=== PATIENT | male | born 1980 | race Caucasian/White ===

== ENCOUNTER 2021-08-12 10:41 | Emergency (ER) | payer SELFPAY ==
[~2021-08-12] VITALS: Ht 175.3 cm; Wt 127.0 kg
[2021-08-12 12:15] VITALS: BP 126/81
== END 2021-08-12 12:15 | disposition home or self-care (01) | DRG 948 ==
LOC: ED 10:41
DX: R68.83 Chills (without fever) (principal); M79.10 Myalgia, unspecified site; G20 Parkinson's disease; F17.200 Nicotine dependence, unspecified, uncomplicated; Z20.822 Contact with and (suspected) exposure to COVID-19

== ENCOUNTER 2023-01-13 18:36 | Emergency (ER) | payer OTHER ==
[~2023-01-13] VITALS: Ht 175.3 cm; Wt 131.0 kg
[2023-01-13] VITALS (9 sets, daily range): BP systolic 57–128; BP diastolic 39–92
[2023-01-13 18:59] LABS: BASO% 0.3 % (0-3); EOS% 0.8 % (0-8); HEMATOCRIT 43.9 % (39.0-50.0); HEMOGLOBIN 14.4 g/dl (14.0-18.0); IMMATURE GRANULOCYTES 0.1 % (0.0-5.0); LYMPH% 40.7 % (15-41); MEAN CELL VOLUME 94.6 fL CALC (80.0-100.0); MEAN CORPUSCULAR HGB CONC 32.8 g/dL CAL (32.0-36.0); MONO% 6.8 % (2-13); NEUT# 4.02 thou/uL (1.82-7.42); NEUT% 51.3 % (42-76); RED BLOOD COUNT 4.64 mill/uL (4.70-6.10); RED CELL DISTRI WIDTH 11.8 % (11.5-15.5)
[2023-01-13 19:19] LABS: ALBUMIN 4.4 g/dL (3.2-5.0); ALKALINE PHOSPHATASE 34 u/l (38-126); ANION GAP 12 (6-22 (CALC)); BILIRUBIN, TOTAL 0.3 mg/dL (0.2-1.3); BUN 14 mg/dL (9-20); BUN/CREATININE RATIO 12 (12-20 (CALC)); CARBON DIOXIDE 26 mmol/l (22-30); CHLORIDE 106 mmol/l (95-108); CREATININE 1.1 mg/dL (0.7-1.3); GFR FOR AFR.AMER. > 60 ML/MIN (>=60 (CALC)); GFR OTHER RACES > 60 ML/MIN (>=60 (CALC)); LIPASE 147 u/l (23-300); POTASSIUM 3.9 mmol/l (3.5-5.1); SGOT/AST 27 u/l (17-59); SODIUM 139 mmol/l (137-146); TOTAL PROTEIN 7.4 g/dL (6.3-8.2)
[2023-01-13] MEDS ORDERED: MOTRIN800 MG PO (22:42)
[2023-01-13] MEDS ORDERED: TIZANIDINE2 MG PO (22:42)
== END 2023-01-13 23:39 | disposition home or self-care (01) | DRG 605 ==
LOC: ED 18:36
PROVIDERS: Family Medicine
DX: S20.212A Contusion of left front wall of thorax, initial encounter (principal); M54.2 Cervicalgia; G20 Parkinson's disease; V49.40XA Driver injured in collision with unspecified motor vehicles in traffic accident, initial encounter
CPT/HCPCS: Q9967

== ENCOUNTER 2023-04-21 20:31 | Emergency (ER) | payer OTHER ==
[~2023-04-21] VITALS: Ht 175.3 cm; Wt 127.0 kg
[~2023-04-21 20:31] MED LIST: MOTRIN800 MG PO; TIZANIDINE2 MG PO
[2023-04-21 20:38] VITALS: BP 149/90
[2023-04-21] MEDS ORDERED: PROPRANOLOL HYD40 MG PO (20:45)
[2023-04-21 20:47] VITALS: BP 135/91
[2023-04-21] MEDS ORDERED: NAPROXEN500 MG PO (20:54)
[2023-04-21] MEDS ORDERED: CYCLOBENZAPRINE10 MG PO (20:54)
[2023-04-21 21:01] VITALS: BP 133/97
[2023-04-21 21:18] VITALS: BP 133/97
== END 2023-04-21 21:18 | disposition home or self-care (01) | DRG 552 ==
LOC: ED 20:31
DX: M54.50 Low back pain, unspecified (principal)

== ENCOUNTER 2023-08-18 22:11 | Emergency (ER) | payer SELFPAY ==
[~2023-08-18] VITALS: Ht 175.3 cm; Wt 127.0 kg
[~2023-08-18 22:11] MED LIST changes: +CYCLOBENZAPRINE10 MG PO; +NAPROXEN500 MG PO; +PROPRANOLOL HYD40 MG PO
[2023-08-18 22:30] VITALS: BP 127/92
[2023-08-18] MEDS ORDERED: ROPINIROLE0.5 MG PO (22:43)
[2023-08-18 22:46] VITALS: BP 114/68
[2023-08-18 23:16] VITALS: BP 104/67
[2023-08-19] MEDS ORDERED: METHOCARBAMOL500 MG PO (02:35)
[2023-08-19 02:45] VITALS: BP 104/67
== END 2023-08-19 02:45 | disposition home or self-care (01) | DRG 552 ==
LOC: ED 22:11
DX: M54.9 Dorsalgia, unspecified (principal); G20.A1 Parkinson's disease without dyskinesia, without mention of fluctuations

== ENCOUNTER 2024-02-23 14:26 | Observation (INO) | payer OTHER ==
[2024-02-23] VITALS (19 sets, daily range): BP systolic 72–230; BP diastolic 30–129
[~2024-02-23] VITALS: Ht 175.3 cm; Wt 121.0 kg
[~2024-02-23 14:26] MED LIST changes: +ESCITALOPRAM OXA5 MG PO; +GABAPENTIN800 MG PO; +HALCION0.25 MG PO; +MELOXICAM15 MG PO; +METHOCARBAMOL500 MG PO; +ROPINIROLE0.5 MG PO; +TRIHEXYPHEN2 MG PO; +ZOFRAN4 MG/TAB PO
[2024-02-23] MEDS ORDERED: ASPIRIN 81 MG/TAB PO ONE (14:35)
[2024-02-23] MEDS ORDERED: diazePAM 10 MG/2 ML VIAL IV ONE (14:45)
[2024-02-23] MEDS ORDERED: NITROGLYCERIN 0.4 MG/TAB SL ONE (15:10)
[2024-02-23 15:11] LABS: BASO% 0.3 % (0-3); EOS% 0.8 % (0-8); HEMATOCRIT 41.9 % (39.0-50.0); MEAN CELL VOLUME 96.3 fL CALC (80.0-100.0); MEAN CORPUSCULAR HGB 32.2 pG CALC (26.0-32.0); MEAN CORPUSCULAR HGB CONC 33.4 g/dL CAL (32.0-36.0); MONO% 6.6 % (2-13); NEUT# 3.98 thou/uL (1.82-7.42); NEUT% 61.3 % (42-76); RED BLOOD COUNT 4.35 mill/uL (4.70-6.10); RED CELL DISTRI WIDTH 12.1 % (11.5-15.5)
[2024-02-23 15:27] LABS: ALBUMIN 4.2 g/dL (3.2-5.0); ALKALINE PHOSPHATASE 25 u/l (38-126); ANION GAP 7 (6-22 (CALC)); BILIRUBIN, TOTAL 0.5 mg/dL (0.2-1.3); BUN 12 mg/dL (9-20); BUN/CREATININE RATIO 12 (12-20 (CALC)); CARBON DIOXIDE 27 mmol/l (22-30); CHLORIDE 106 mmol/l (95-108); ESTIMATED GFR 97 ML/MIN (>=90 (CALC)); POTASSIUM 4.2 mmol/l (3.5-5.1); SGOT/AST 25 u/l (17-59); SODIUM 136 mmol/l (137-146); TOTAL PROTEIN 7.3 g/dL (6.3-8.2)
[2024-02-23] MEDS ORDERED: SODIUM CHLORIDE 0.9% 1,000 ML IV ONE (15:35)
[2024-02-23] MEDS ORDERED: MORPHINE SULFATE 4 MG/ML VIAL IV ONE ×2 (18:15)
[2024-02-23] MEDS ORDERED: ACETAMINOPHEN 325 MG/TAB PO PRN (19:55)
[2024-02-23] MEDS ORDERED: ALPRAZolam 0.5 MG/TAB PO PRN (19:55)
[2024-02-23] MEDS ORDERED: MAGNESIUM HYDROXIDE 30 ML UDC PO PRN (19:55)
[2024-02-23] MEDS ORDERED: Zaleplon 5 MG/CAP PO PRN (19:55)
[2024-02-23] MEDS ORDERED: GABAPENTIN 300 MG/CAP PO SCH (21:00)
[2024-02-23] MEDS ORDERED: GABAPENTIN 100 MG/CAP PO SCH (21:00)
[2024-02-23] MEDS ORDERED: ENOXAPARIN SODIUM 40 MG/0.4 ML SYR SC SCH (21:00)
[2024-02-24] MEDS ORDERED: ESCITALOPRAM 10 MG/TAB PO SCH (09:00)
== END 2024-02-23 20:36 | disposition left against medical advice (07) | DRG 313 ==
LOC: ED 14:26 → ED-I 17:45 → ED 17:52 → MS2 17:53 → ED 17:53 → MS2 18:13
PROVIDERS: Nurse Practitioner; ADMIT Internal Medicine; ATTEND Internal Medicine
DX: R07.9 Chest pain, unspecified (principal); M25.512 Pain in left shoulder; M25.511 Pain in right shoulder; I48.91 Unspecified atrial fibrillation; G20.A1 Parkinson's disease without dyskinesia, without mention of fluctuations